=== PATIENT | female | born 1935 | race Caucasian/White ===

== ENCOUNTER 2017-05-30 14:21 | Emergency (ER) | payer OTHER ==
[~2017-05-30] VITALS: Ht 157.5 cm; Wt 79.4 kg
[2017-05-30] MEDS ORDERED: SYNTHROID50 MCG (14:42)
[2017-05-30] MEDS ORDERED: CRESTOR10 MG (14:43)
== END 2017-05-30 18:40 | disposition home or self-care (01) ==
LOC: ER 14:21
DX: S02.2XXA Fracture of nasal bones, initial encounter for closed fracture (principal); S00.83XA Contusion of other part of head, initial encounter; R55 Syncope and collapse; J11.1 Influenza due to unidentified influenza virus with other respiratory manifestations; T50.995A Adverse effect of other drugs, medicaments and biological substances, initial encounter; W18.09XA Striking against other object with subsequent fall, initial encounter; Y93.89 Activity, other specified; Y92.018 Other place in single-family (private) house as the place of occurrence of the external cause; Y99.8 Other external cause status

== ENCOUNTER 2022-06-08 13:01 | Outpatient (CLI) | payer OTHER ==
[~2022-06-08 13:01] MED LIST: CRESTOR10 MG; SYNTHROID50 MCG
== END 2022-06-08 13:06 | disposition home or self-care (01) ==
LOC: RAD 13:01
PROVIDERS: ATTEND Orthopaedic Surgery
DX: M25.561 Pain in right knee (principal); M25.562 Pain in left knee